=== PATIENT | male | born 1975 | race Caucasian/White ===

== ENCOUNTER 2023-09-16 00:48 | Day surgery (SDC) | payer BC, SELFPAY ==
[2023-09-06 13:58] VITALS: BMI 26.0
[2023-09-16 10:02] VITALS: BP 129/84; PULSE 94; RESP 18; TEMP 36.4; O2SAT 98; BMI 25.0
[2023-09-16] MEDS: LACTATED RINGERS 1,000 ML 150 ML IV CONT (10:20)
--- NOTE | 2023-09-16 10:48 | WPDANESEPPF ---
Anes - Initial Pre Proc Eval Procedure: Operation Date: 09/16/23 11:30 Proposed Procedures p Screening Colonoscopy - Jonathan Major MD Date/Time: 09/16/23 10:48 Surgeon: Jonathan Major MD Pre Op Diagnosis: neoplasm screening Patient Data Age: 48 Gender: M Height: 1.93 m Weight: 93.3 kg Last Vital Signs Temp 97.6 F 09/16/23 10:02 Pulse 94 09/16/23 10:02 Resp 18 09/16/23 10:02 BP 129/84 09/16/23 10:02 Pulse Ox 98 09/16/23 10:02 O2 Del Method Room Air 09/16/23 10:02 Allergies Allergy/AdvReac Type Severity Reaction Status Date / Time penicillin G Allergy Severe Rash Verified 09/16/23 10:10 keflex Allergy Severe Rash Uncoded 09/16/23 10:10 Home Medications Medication Instructions Recorded Confirmed Type atorvastatin 40 mg tablet 40 mg PO DAILY 09/27/22 09/16/23 History levothyroxine 100 mcg capsule 100 mcg PO DAILY 09/27/22 09/16/23 History multivitamin 1 tablet PO DAILY 09/27/22 09/16/23 History Patient hx anesthesia problems: none Family hx anesthesia problems: none Results Review: All pre-operative results and documents have been reviewed as part of the pre-operative evaluation. [facility] Family History Family History Grandparent Cancer Diabetes mellitus Hypertension Heart disease Cerebrovascular accident Social History Social History (Updated 08/09/23 @ 14:22 by Cora Tobar CMA) Smoking status: Never smoker Alcohol intake: never Substance use: never Substance use type: does not use Lack of Transportation: No Lack of Food: Never True Current Housing: I Have Housing Concerned About Future Housing: No Difficulty Paying Gas/Electric Bills: No Difficulty Paying for Meds: No Currently Unemployed: No Education: Master's Degree or Higher Spiritual care concerns: No Anes - Eval Final PreProcedure Day of Procedure 09/16/23 10:48 Patient weight: normal Heart: regular rate and rhythm Lungs: clear to auscultation Airway: Mallampati scale class II Neurological: alert and oriented Last oral intake: >/= 8 hours ASA classification: II Emergent: no Anesthetic plan: proceed Anesthesia type and monitoring: general GIVS and standard monitoring Results Review: All pre-operative results and documents have been reviewed as part of the pre-operative evaluation. Informed Consent: The patient's anesthetic plan and its attendant risks and benefits were discussed with the patient/family/POA. Questions were solicited and answers provided to the satisfaction of the patient/family/POA.
--- NOTE | 2023-09-16 11:05 | PM.HPGS ---
History of Present Illness History of Present Illness Consent: Risks, benefits, and alternatives have been discussed and questions answered. Patient agrees to proceed with procedure. Chief complaint: neoplasm screening Narrative: Rob Chu is a 48 year old male here for first screening colonoscopy Review of Systems Review of Systems: All systems reviewed & are unremarkable except as noted in HPI and below PMFSH Past Medical History Medical History (Updated 09/16/23 @ 11:06 by Jonathan Major MD) Colon cancer screening Family History Family History Grandparent Cancer Diabetes mellitus Hypertension Heart disease Cerebrovascular accident Social History Social History (Updated 08/09/23 @ 14:22 by Cora Tobar CMA) Smoking status: Never smoker Alcohol intake: never Substance use: never Substance use type: does not use Lack of Transportation: No Lack of Food: Never True Current Housing: I Have Housing Concerned About Future Housing: No Difficulty Paying Gas/Electric Bills: No Difficulty Paying for Meds: No Currently Unemployed: No Education: Master's Degree or Higher Spiritual care concerns: No Meds Home Medications and Allergies Home Medications Medication Instructions Recorded Confirmed Type atorvastatin 40 mg tablet 40 mg PO DAILY 09/27/22 09/16/23 History levothyroxine 100 mcg capsule 100 mcg PO DAILY 09/27/22 09/16/23 History multivitamin 1 tablet PO DAILY 09/27/22 09/16/23 History Allergies Allergy/AdvReac Type Severity Reaction Status Date / Time penicillin G Allergy Severe Rash Verified 09/16/23 10:10 keflex Allergy Severe Rash Uncoded 09/16/23 10:10 Vital Signs Vital Signs - 24 hr 09/16/23 10:02 Temperature 97.6 F Pulse Rate 94 Respiratory Rate 18 Blood Pressure 129/84 Pulse Oximetry 98 Oxygen Delivery Room Air Exam Const: General: comfortable and no acute distress HENMT: Face/Nose/Sinus: Normal nares present Eyes: General: appearance normal, both eyes and all related structures Neck: Neck: no JVD Resp: Auscultation: clear to auscultation bilaterally Cardio: Rate: regular rate Rhythm: regular rhythm GI: Inspection: non-distended GI Palp: Yes Soft to palpation Skin: General skin exam: normal color Neuro: General: gait normal Speech: normal speech Extrem: General: normal to inspection Psych: Mental Status: mental status grossly normal Assessment and Plan Assessment and plan (1) Colon cancer screening: Code(s): Z12.11 - Encounter for screening for malignant neoplasm of colon Status: Acute Assessment and Plan: colonoscopy
[2023-09-16 11:24] VITALS: BP 104/64; PULSE 75; RESP 18; O2SAT 99
[2023-09-16 11:35] VITALS: BP 116/77; PULSE 72; RESP 19; O2SAT 100
[2023-09-16 11:44] VITALS: BP 117/81; PULSE 72; RESP 19; O2SAT 100
== END 2023-09-16 11:52 | disposition home or self-care (01) ==
PROVIDERS: PCP Physician Assistant; Visit Provider Internal Medicine Gastroenterology
PROC: 0DJD8ZZ Inspection of Lower Intestinal Tract, Via Natural or Artificial Opening Endoscopic (ICD-10-PCS; CPT 45378; principal; 2023-09-16 11:30)
DX: Z12.11 Encounter for screening for malignant neoplasm of colon (principal); K62.1 Rectal polyp; K64.8 Other hemorrhoids
CPT/HCPCS: 45385; 88305; J2704; J7120

== ENCOUNTER 2024-07-13 13:06 | Outpatient (CLI) | payer BC, SELFPAY ==
[2024-07-13 14:01] LABS: Alanine Aminotransferase 26 U/L (6-50); Albumin Level 4.4 g/dL (3.5-5.1); Alkaline Phosphatase 62 U/L (38-126); Aspartate Amino Transferase 29 U/L (17-59); Bilirubin Indirect 0.8 mg/dL (0-1.1)
--- OUTSIDE RECORDS SUMMARY | 2024-07-13 14:56 | XMS_ITS | Data Portability ---
Author Organization [place] - [facility] [employer], Main Office Address [address] [place] [address] Assessment Encounter Date Assessment Date Assessment LastModified by Organization Details LastModified Time 08/08/2023 08/08/2023 1. Band like sammy n abdomen. Do not suspect intra-abdominal pathology. Suspect musculoskeletal issue. 2. Inguinal hernias on CT. Does have a palpable left inguinal hernia on exam. asymptomatic. Patient will return to our office if notices a bulge, pain or any other symptomatology in the left groin [email or web address] 1 Not available 08/08/2023 11:37:53 Plan of Treatment Reminders Order Date Submit Date Provider Last Modified By Organization Details Last Modified Time Details Appointments None recorded. Lab PSA, serum or plasma [address] (Lab), [address] [place], [address], 4 08:40:16 hepatitis C Ab, serum [address] (Lab), [address] [place], [address], 4 08:40:16 hepatitis panel (A+B+C), acute, serum 2023 024 [facility] [address] [place] [address] (Lab), [address] [place], [address], 4 08:40:16 glycohemogl obin, total, blood 2023 024 [email or web address] 2 [facility] (Lab), [address] [place], [address], 4 08:40:16 amylase, serum or plasma 2023 024 [email or web address] 2 [facility] (Lab), [address] [place], [address], 4 08:38:27 lipase, serum or plasma 2023 024 [email or web address] 2 [facility] (Lab), [address] [place], [address], 4 08:38:27 CBC w/ auto diff 2023 024 [email or web address] 2 [facility] (Lab), [address] [place], [address], 4 08:38:27 lipid panel, serum 2023 024 [email or web address] 2 [facility] (Lab), [address] [place], [address], 4 08:38:27 CMP, serum or plasma 2023 024 [email or web address] 2 [facility] (Lab), [address] [place], [address], 4 08:38:27 CK (creatine kinase), total, serum 2023 024 [email or web address] 2 [facility] (Lab), [address] [place], [address], 4 08:38:27 amylase, serum or plasma 2023 024 [email or web address] 2 [facility] (Lab), [address] [place], [address], 4 08:33:12 CBC w/ auto diff 2023 024 [facility] ([facility] [address] [place], [address], 4 20:23:45 H. pylori, fingerstick 2023 024 [facility] [address] , [address], [place], [address], 4 10:30:22 Referral general surgeon referral - Bilateral inguinal hernias , on CAT scan . Has right lower quadrant discomfort aggravated by movement . No hernias palpated in scrotum . Please eval and treat . Please call patient to schedule an appointment . Thank you 2023 024 [email or web address] Raúl Wahl MD, [address] [facility] [address], [place], [address], 4 08:37:04 Procedures None recorded. Surgeries None recorded. Imaging None recorded. Medication Orders atorvastati n 40 mg tablet 2023 [id number], [address] [facility], [place], [place], [id number], 11:32:54 Patient TargetsNo targets recorded. Patient InstructionsNo instructions recorded. Reason for Referral General Surgeon Referral for Bilateral inguinal hernia Bilateral inguinal hernias , on CAT scan . Has right lower quadrant discomfort aggravated by movement . No hernias palpated in scrotum . Please eval and treat . Please call patient to schedule an appointment. Thank you Referring Physician: Enrrique Wakefield, Family Medicine, Encounter Date: 07/19/2023 Results Created Date Observation Date Name Description Value Unit Range Abnormal Flag Note LastModifiedBy Organization Detail LastModifiedTime 07/19/19 24 07/19/2023 H. pylor i, finge rstic k H PYLORI negati ve Not Available [facility] [address], [place], [address], 07/19/2023 10:07:16 07/16/19 24 07/10/2023 CT, abdom en + pelvi s, w/o contr ast No observ ation record ed. [email or web address] [facility] [address] [place], [address], 07/17/2023 09:53:15 01/28/20 24 01/28/2024 US, liver No observ ation record ed. [facility] [address] [place], [address], 02/24/2024 12:01:50 Result Notes None recorded. Problems Name Problem SNOMED Code Status Onset Date Resolution Date Notes Provider Name and Address Organization Details Recorded Time Nocturia 701593232 Active 2021 Not Available [facility] 3 19:28:46 Increased frequency of urination 416159936 Active 2021 Not Available [facility] 3 19:28:46 Benign prostatic hyperplas ia with outflow obstructi on 763017146 Active 2021 Not Available [facility] 3 19:28:46 Hypothyro idism 65259060 Active 2021 Not Available [facility] 3 19:28:46 Serum cholester ol borderlin e high 954094123 Active 2016 Not Available [facility] 3 19:28:47 Hyperlipi demia 79632960 Active 2022 Brent Alarcon MD [address] [facility] [address], [place], [address] , [employer] [facility] [employer] 3 15:43:03 Lower urinary tract symptoms due to benign prostatic hypertrop hy 35816711401 101 Active 2022 Brent Alarcon MD [address] [facility] [address], [place], [address] , [employer] 3 15:45:06 Vocal cord dysfuncti on 642674059 Active 2022 Brent Alarcon MD [address], [address], [place], [address] , [place] [employer] [place] [email or web address] 3 18:54:28 Benign prostatic hyperplas ia 261780262 Active 2022 Jin Kyle MD [address], [address], [place], [address] , [place] [employer] [place] [employer] 3 10:30:30 Hemorrhoi ds 70010323 Active 2022 Brent Alarcon MD [address], [address], [place], [address] , [employer] [place] [employer] 3 11:41:32 Screening for malignant neoplasm of colon Active 2023 KAMILA Mars [address], [address], [place], [address] , [employer] [place] [employer] 4 16:50:08 Right lower quadrant pain 003623630 Active 2023 KAMILA Mars [address], [address], [place], [address] , [employer] [place] [employer] 4 12:45:31 Abdominal pain 12150162 Active 2023 KAMILA Mars [address], [address], [place], [address] , [place] [employer] [facility] 4 17:10:51 Bilateral inguinal hernia 81118648 Active 2023 KAMILA Mars [address], [address], [place], [address] , [place] [employer] [place] [employer] 4 10:11:58 Left inguinal hernia 272051438 Active 2023 Raúl martinez MD [address], [address], [place], [address] , [place] [employer] 4 14:21:17 Depressiv e disorder 81996222 Active 2023 KAMILA Mars [address], [address], [place], [address] , [employer] 4 16:43:48 Screening for malignant neoplasm of prostate Active 2023 KAMILA Mars [address], [address], [place], [address] , [employer] 4 11:43:11 Hepatitis C screening Active 2023 KAMILA Mars [address], [address], [place], [address] , [employer] 4 11:43:43 Family history of diabetes mellitus 763547852 Active 2023 paternal grandma and his Dad KAMILA Mars [address], [address], [place], [address] , [employer] 4 11:45:22 Adult health examinati on Active 2023 KAMILA Mars [address] [email or web address], [address], [place], [address] , [employer] 4 11:47:19 Liver enzymes level above reference range 839428613 Active 2023 Desiree Powell RN null, [employer] 4 14:12:52 Steatosis of liver 778562051 Active 2023 KAMILA Mars [address] [email or web address], [address], [place], [address] , [employer] 4 11:29:29 Notes:had colonoscopy Problem Notes None recorded. Procedures Surgical History None recorded. Imaging Results Imaging Date Name Status LastModified by Organiz ation Details LastModified Time 07/10/2023 CT, abdomen + pelvis, w/o contrast completed [email or web address] [facility] [address], [place], [address], 07/17/2023 09:53:15 01/28/2024 US, liver completed [email or web address] [facility] [address] [place], [address], 02/24/2024 12:01:50 Procedure Notes None recorded. Medical Equipment None Reported. Allergies Allergen ID Allergen Name Allergen Category Reaction Reaction Severity Criticality Documentation Date Start Date Code Code System Note Provider Name and Address Organization Details Recorded Time 76364 Product containin g penicilli n (product) medicatio n Not available Not available Not available 06/06/2022 48425 8001 SNOMED Not Available [facility] 3 19:30:15 31593 Keflex medicatio n Not available Not available Not available 06/06/202232039 7 RxNorm Not Available [facility] 3 19:30:15 Medications Name Sig Start Date Stop Date Status Note LastModified by Organization Details LastModified Time atorvastati n 40 mg tablet TAKE 1 TABLET BY MOUTH EVERY DAY active Not Available Not Available No t Available atorvastati n 10 mg tablet Take 1 tablet every day by oral route. 07/05 completed Not Available Not Available Not Available oxybutynin chloride ER 10 mg tablet,exte nded release 24 hr Take 1 tablet every day by oral route. 08/13 completed Not Available Not Available Not Available ciprofloxac in 500 mg tablet TAKE 1 TABLET BY MOUTH EVERY 12 HOURS FOR 10 DAYS FOR ABDOMINAL PAIN 08/07 completed Not Available Not Available Not Available levothyroxi ne 75 mcg tablet TAKE 1 TABLET BY MOUTH EVERY DAY active Not Available Not Available No t Available levothyroxi ne 100 mcg tablet TAKE 1 TABLET BY MOUTH EVERY DAY active Not Available Not Available No t Available tamsulosin 0.4 mg capsule TAKE 1 CAPSULE BY MOUTH EVERY DAY 08/13 completed Not Available Not Available Not Available dicyclomine 10 mg capsule active Not Available Not Available Not Available escitalopra m 10 mg tablet TAKE 1 TABLET BY MOUTH EVERY DAY IN THE MORNING FOR DEPRESSIO N active Not Available Not Available No t Available levothyroxi ne 03/22 completed Not Available Not Available Not Available COVID-19 test specimen collection TEST DIRECTED TODAY 08/13 completed Not Available Not Available Not Available Vitals Date Recorded Body height Body mass index (BMI) Body weight Body temperature Respiratory rate Heart rate Systolic blood pressure Diastolic blood pressure Provider Name and Address Organization Details Last Updated DateTime 4 193.04 cm 26.3 kg/m2 81794.9 5 g 97.6 [degF] 16 /min 67 /min 138 mm[Hg] 74 mm[Hg] Desiree Powell RN [facility] [employer] [facility] 4 09:52:56 Date Recorded Body height Body mass index (BMI) Body weight Provider Name and Address Organization Details Last Updated DateTime 08/08/2023 193.04 cm 26.3 kg/m2 24440.95 g Lilia Mejia MA [facility] [employer] [facility] 08/08/2023 11:04:09 Date Recorded Body height Body mass index (BMI) Body weight Body temperature Heart rate Oxygen saturation Oxygen saturation in Arterial blood by Pulse oximetry Systolic blood pressure Diastolic blood pressure Provider Name and Address Organization Details Last Updated DateTime 4 193.04 cm 26 kg/m2 34109.2 7 g 98.7 [degF] 76 /min 98 % 98 % 123 mm[Hg] 90 mm[Hg] Nena Forte MA [facility] [employer] [facility] 4 11:21:14 Date Recorded Body height Body mass index (BMI) Body weight Body temperature Heart rate Oxygen saturation Oxygen saturation in Arterial blood by Pulse oximetry Respiratory rate Systolic blood pressure Diastolic blood pressure Provider Name and Address Organization Details Last Updated DateTime 4 193.04 cm 25.4 kg/m2 49980.8 1 g 98 [degF] 78 /min 98 % 98 % 16 /min 132 mm[Hg] 86 mm[Hg] Desiree Powell RN [facility] [employer] [facility] 4 11:36:18 Date Recorded Body height Body mass index (BMI) Body weight Body temperature Heart rate Oxygen saturation Oxygen saturation in Arterial blood by Pulse oximetry Systolic blood pressure Diastolic blood pressure Provider Name and Address Organization Details Last Updated DateTime 4 193.04 cm 26 kg/m2 51846.7 7 g 97.3 [degF] 68 /min 99 % 99 % 118 mm[Hg] 92 mm[Hg] Desiree Powell RN [place] [facility] 11:39:20 Social History Question Answer Notes LastModified by Organizat ion Details LastModified Time Tobacco Smoking Status Never Smoker Not Available [facility] 06/06/2022 19:28:04 What Is Your Level Of Alcohol Consumption? None Information not available 08/08/2023 What Is Your Level Of Caffeine Consumption? Occasional Information not available 08/08/2023 What Type Of Diet Are You Following? VEGETARIAN Mostly Vegetarian Information not available 08/08/2023 What Was The Date Of Your Most Recent Tobacco Screening? 08/02/2021 [id number] Information not available 06/06/2022 What Is Your Relationship Status? Single Information not available 08/08/2023 Do You Use Any Illicit Or Recreational Drugs? No Information not available 08/08/2023 Do You Have Any Dietary Restrictions? Yes Information not available 08/08/2023 Sex: Unknown Functional Status Question Answer Note LastModified by Organization D etails LastModified Time What is your exercise level? Moderate ess37 Information not available 08/08/2023 Mental Status None recorded. Family History Relationship Description Onset Age of this Age Resolved Age Notes LastModified by Organization Details LastModified Time Mother Rheumatoid arthritis [email or web address] [id number] Not available 06/06/2022 19:28:08 Father Pancreatitis [email or web address] [id number] Not available 06/06/2022 19:28:08 Medical History Condition Response BLINDNESS N RHEUMATIC FEVER N KIDNEY STONES N BLADDER PROBLEMS N MRSA N OTHER # 1 N POLIO N LUNG DISEASE/DISORDER N HISTORY OF DRUG ABUSE N RADIATION / CHEMOTHERAPY N COPD N Other # 2 N BLOOD DISEASES N SURGERY N EAR OR HEARING PROBLEMS N MUMPS N SHINGLES N BOWEL PROBLEMS N FEMALE PROBLEMS / INFECTIONS N DEPRESSION (INCLUDING POST ) N STROKE/TIA N THYROID DISEASE Y ULCERS N BENIGN PROSTATIC HYPERPLASIA N MEASLES N CERVICALGIA N HYPOTENSION N TB SKIN TEST N MYOCARDIAL INFARCTION N PARAPELGIA N OBESITY N GERD/NAUSEA N ANEURYSM N URINARY/BLADDER/KIDNEY PROBLEMS N CORONARY ARTERY DISEASE (CAD) N MENIERE'S DISEASE N ADDICTION CONCERNS N ENDOMETRIOSIS N USE OF BLOOD THINNERS N SKIN PROBLEMS N EMPHYSEMA N GASTROINTESTINAL DISORDER N MUSCLE,JOINT OR BONE PROBLEMS N GASTROINTESTINAL BLEEDING N BLOOD CLOTS N ASTHMA N CATARACTS N ERECTILE DYSFUNCTION N GI PROBLEMS N CHF N Low Testosterone N NEUROPATHY N INFERTILITY N AIDS/HIV N FRACTURES N CHEMOTHERAPY / RADIATION N VISION/EYE PROBLEMS N LIVER DISEASE N MALE HYPOGONADISM N HYPERTENSION N TOURETTE'S N ANXIETY DISORDER N BLOOD TRANSFUSION N ANEMIA/BLOOD DISORDER N CHRONIC EAR INFECTIONS N BRONCHITIS N TUBERCULOSIS N GLAUCOMA N FOOT PROBLEM N DIVERTICULITIS N CHICKENPOX N SLEEP APNEA N ALLERGIES/HAYFEVER N INFECTIOUS DISEASE N HEART ARRHYTHMIA N PROSTATE N INSOMNIA N HIGH CHOLESTEROL / HYPERLIPIDEMIA Y HYPERTHYROIDISM N EYE PROBLEMS N EATING DISORDER N EDEMA N CHRONIC PAIN SYNDROME N CONSTIPATION N CAROTID BLOCKAGE N BACK / NECK PROBLEMS N HAVE YOU BEEN HOSPITALIZED OR SEEN IN [facility] IN THE PAST YEAR ? N ATHEROSCLEROSIS N BREAST PROBLEMS N DIALYSIS N ECZEMA N FIBROMYALGIA N OSTEOPOROSIS N ARTHRITIS N NO SIGNIFICANT PAST MEDICAL HISTORY N APPENDICITIS N DIABETES, TYPE N BAD TEETH N HEARTBURN / REFLUX N ADD/ADHD N AUTISM SPECTRUM DISORDER (ASD) N HEPATITIS / LIVER DISEASE N PULMONARY DISEASE N GOUT N SLEEP DISORDER N ALZHEIMER'S DISEASE N PAIN N HERPES N DEMENTIA N HEADACHES/MIGRAINES N SEIZURES/EPILEPSY N VASCULAR DISEASE N PACEMAKER N DIZZINESS N HEART DISEASE/HEART PROBLEMS N KIDNEY DISEASE N DEVELOPMENTAL OR BEHAVIORAL DISORDERS N MULTIPLE SCLEROSIS N SCARLET FEVER N MENTAL DISORDER/ILLNESS N CARDIAC ARRHYTHMIA N CANCER: SPECIFY N PNEUMONIA N ATRIAL FIBRILLATION N Gall Stones N PULMONARY EMBOLISM N AUTOIMMUNE DISEASE N Immunizations Vaccine Type Date Status Note Provider Nam e and Address Organization Details Recorded Time Influenza, split virus, quadrivalent, PF 02/21/2023 completed Brent Alarcon MD [address] [facility] [address], [place], [address], [facility] [employer] [facility] 02/21/2023 12:20:53 Past Encounters Encounter ID Performer Location Encounter Start Date Encounter Closed Date Diagnosis/Indication Diagnosis SNOMED-CT Code Diagnosis ICD10 Code Diagnosis Note [id number] [facility] Family Practice Ozzie camara [address] [facility] [place] [address] 04/19/2021 00:00:00 04/19/2021 21:33:54 [id number] [facility] ENT [place] [address] [facility] [address] [place] [address] 05/24/2021 00:00:00 05/24/2021 11:26:37 [id number] [facility] [address] [place] [address] 07/05/2021 00:00:00 07/05/2021 11:42:30 [id number] [facility]_[address] [address] 08/02/2021 00:00:00 08/02/2021 13:24:40 [id number] Brent Alarcon MD [facility] [address] [facility] [place] [address] 08/13/2022 15:27:24 08/13/2022 15:56:08 Adult health examination 981592451 Z00.00 Hyperlipidemia 00252373 E78.5 Screening for malignant neoplasm of colon 401947466 Z12.11 Screening for malignant neoplasm of prostate 058871014 Z12.5 Hypothyroidism 96090738 E03.9 Vocal cord dysfunction 394626342 R49.9 [id number] Jin Kyle MD [facility] [address] [place] [address] 10/17/2022 11:14:14 10/17/2022 12:04:31 Increased frequency of urination 164175615 R35.0 :Unclear etiology for urinary symptoms at this time. In addition to potential etiologies of infection/ UTI or inflammati on, are a general failure to empty the bladder (BPH, Strictures , etc), or a failure to store urine (Overactiv e bladder/Bl adder Spasms).[facility] [place] WORKUP:-Ur inalysis (to rule out infection) ; will culture if UA concerning -Will hold on antibiotic s until culture data returnsETI OLOGY WORKUP:-To differenti ate failure to store vs. empty-PVR todayBased on UA and PVR, findings most consistent with bladder overactivi ty, but if patient's bother increases can consider addition of functional and/or structural studies to further investigat e.SYMPTOM CONTROL:-S top Oxybutinin Chloride ER-Stop Gemtesa 75mg Daily-07/26 23 Started Tamsulosin 0.4mg dailyPLAN: -Currently off all BPH/OAB meds due to lack of improvemen t-Discussjairo cadet cystoscopy + TRUS vs. PFPT referral -- he wishes for Cysto + TRUS next available -- if reassuring , is amenable to PFPT Benign pro static hyperplasia 710840494 N40.1 Nocturia 072260123 R35.1 :I counseled the patient on behavioral modificati ons first to minimize his nocturia, as a large part of the issue is likely volume-rel ated, third-spac ing, or physiologi c rather than predominan tly a bladder outlet obstructio n or bladder dysfunctio n (though those may be present as well.He will try ceasing PO intake 3 hours prior to bedtime and elevating his legs prior to bed; he will void right before bed. [id number] Brent Alarcon MD [facility] Ozzie camara [address] [place] [address] 02/21/2023 11:11:21 02/21/2023 11:50:44 Hemorrhoids 33795900 K64.9 Use prep H or tucks medicated pads. Administra tion of influenza vaccine 94736930 Z23 Hyperlipidemia 76147034 E78.5 Continue atorvastat in F/u for annual physical in 08/29 [id number] KAMILA Mars [facility] Ozzie camara [address] [place] [address] 06/27/2023 12:28:42 06/27/2023 12:52:18 Right lower quadrant pain 205000202 R10.31 Benign pro static hyperplasia with outflow obstruction 235187376 N40.1 Hyperlipidemia 95276172 E78.5 Hypothyroidism 35507275 E03.9 [id number] KAMILA Mars [facility] Bhaskar jax [facility] [place] [address] 07/19/2023 09:44:25 07/19/2023 10:36:50 Abdominal pain 07785720 R10.9 Bilateral inguinal hernia 48433219 K40.20 [id number] Raúl martinez MD [facility] General Surgery [address] , [address] [place] [address] 08/08/2023 11:01:53 08/08/2023 11:38:12 Abdominal pain 46437476 R10.9 Left inguinal hernia 236 487980 K40.90 [id number] KAMILA Mars [facility] Bhaskar stanislawe [facility] [place] [address] 08/22/2023 11:06:33 08/22/2023 11:43:24 Abdominal pain 17904707 R10.9 Renewal of prescription 384560295 Z76.0 Hyperlipidemia 04012114 E78.5 Benign pro static hyperplasia 726246311 N40.1 Bilateral inguinal hernia 69436686 K40.20 Hypothyroidism 60455684 E03.9 Right lowe r quadrant pain 487791971 R10.31 [id number] KAMILA Mars [facility] Ozzie camara [address] [place] [address] [place] [address] 11/22/2023 11:30:26 11/22/2023 11:47:54 Screening for malignant neoplasm of prostate 315908408 Z12.5 Hepatitis C screening 41 9197337 Z11.59 Family his tory of diabetes mellitus 707543228 Z83.3 Adult heal th examination 271324993 Z00.00 Benign pro static hyperplasia with outflow obstruction 338358366 N40.1 Bilateral inguinal hernia 12797148 K40.20 Hyperlipidemia 70354185 E78.5 Hypothyroidism 17835857 E03.9 [id number] KAMILA Mars [facility] [place] [address] [place] [address] 02/24/2024 11:33:51 02/24/2024 12:01:21 Hyperlipidemia 32606380 E78.5 Hypothyroidism 31563796 E03.9 Bilateral inguinal hernia 36424408 K40.20 Steatosis of liver 1007 K76.0 Health Concerns Section Related Observation LastModified by Organization Detai ls LastModified Time None Recorded Concern Status LastModified by Organization Details LastModified Time None Recorded Advance Directives Directive None Recorded Payers Encounter Date Sequence Insurance Name Policy Number Policy Toney Covered Member ID Toney Member ID Guarantor Name 07/19/2023 1 [place] [id number] Michael Kimberley [id number] [place] 08/08/2023 1 [place] [id number] Michael Kimberley [id number] Michael [place] 08/22/2023 1 [place] [id number] Michael Kimberley [id number] [place] 11/22/2023 1 [place] [id number] Michael Kimberley [id number] [place] 02/24/2024 1 [place] [id number] [place] [id number] [place] Notes Date Note Type Note Provider Name and Address Organization Details Recorded Time 07/19/2023 text/html pain is evident now , mild but there , 2 to 3 on a scale of 1 to 10, rlq KAMILA Mars [address] [place] [address], [place], [address], [employer] [facility] [employer] 07/30/2023 21:11:01 08/08/2023 text/html Patient complain s of band like pain on his right lower abdomen and right lower back. Intermittent. Had CT scan and was found to have bilateral inguinal hernias. Patient denies any groin pain or bulging. Denies any nausea vomiting changes in bowel habits. Normal diet. Raúl Goldsmith MD [address], [place], [address], [employer] [facility] [employer] 08/08/2023 14:21:30 08/22/2023 text/html right abdominal discomfort continues , KAMILA Mars [address], [place], [address], [employer] [facility] [employer] 09/15/2023 16:40:34 11/22/2023 text/html no changes . feels better , abdominal symptoms went away on their own . surgeon did not feel his inguinal hernia needed repair , yet. KAMILA Mars [address], [place], [address], [facility] 12/02/2023 09:03:13 02/24/2024 text/html no changes KAMILA [address], [place], [id number], [facility] 03[facility]13/2024 17:51:40
[2024-07-13 15:08] LABS: Iron 87 ug/dL (49-181)
[2024-07-13 15:15] LABS: Hepatitis B Surface Antigen Negative (Negative)
[2024-07-13 15:18] LABS: Percent Iron Saturation 20 % (20-50)
[2024-07-13 15:20] LABS: HAV RESULT Negative (Negative); Hepatitis B Core IgM Result Negative (Negative)
[2024-07-13 15:32] LABS: Hepatitis C Virus Antibody Negative (Negative)
[2024-07-14 08:22] LABS: Ceruloplasmin 23 mg/dL (14-30)
[2024-07-14 08:34] LABS: GGT 18 U/L (3-95)
[2024-07-16 10:59] LABS: Actin Antibody (IgG) <20 U (<20)
[2024-07-16 12:02] LABS: Alpha Fetoprotein Tumor Marker 1.6 ng/mL (<6.1)
[2024-07-18 14:04] LABS: Mitochondrial (M2) Ab (IgG) <20.0 U
[2024-07-18 18:04] LABS: ALT 18 U/L (9-46); Alpha-2-Macroglobulin 146 mg/dL (106-279); Apolipoprotein A1 128 mg/dL (94-176); Fibrosis Score 0.17; Fibrosis Stage F0; GGT 17 U/L (3-95); Haptoglobin 121 mg/dL (43-212); Necroinflammat Act Grade A0; Reference ID 5432619; Total Bilirubin 0.8 mg/dL (0.2-1.2)
== END 2024-07-13 13:07 | disposition home or self-care (01) ==
LOC: ANHLAB 13:08
PROVIDERS: PCP Physician Assistant; Visit Provider Nurse Practitioner Family
DX: R79.89 Other specified abnormal findings of blood chemistry (principal); K76.0 Fatty (change of) liver, not elsewhere classified; R10.12 Left upper quadrant pain
CPT/HCPCS: 36415; 80074; 80076; 81596; 82105; 82390; 82977; 83516; 83520; 83540; 83550